=== PATIENT | male | born 1960 | race Caucasian/White ===

== ENCOUNTER 2017-06-18 06:15 | Day surgery (SDC) | payer OTHER ==
[~2017-06-18] VITALS: Wt 104.9 kg
[~2017-06-18 06:15] MED LIST: CHOLECALCIFEROL PO; Coq-10100 MG PO; DOCU100 PO; FISH1000 PO; IBUP600 PO; LORA1 PO; MULTIVITAMIN PO; NAPR500 PO; OXYACE5T PO; OXYC5 PO; PLEXUS BLOCK PO; PLEXUS SLIM PO; WARF4 PO; [UNRECOGNIZED DRUG - OTHER] PO; [UNRECOGNIZED DRUG - OTHER] PO; [UNRECOGNIZED DRUG - OTHER] PO; [UNRECOGNIZED DRUG - OTHER] PO
[2017-10-31] MEDS ORDERED: LORA.5 PO (10:49)
[2017-10-31] MEDS ORDERED: Multivitamin1 EAC1 (10:49)
[2017-10-31] MEDS ORDERED: IBUP600 PO (10:49)
[2017-10-31] MEDS ORDERED: FISH OIL 1,0001 EAC1 (10:49)
== END 2017-06-18 08:21 | disposition home or self-care (01) ==
LOC: ORSCSDS 06:15
PROVIDERS: Orthopaedic Surgery
PROC: 01N50ZZ Release Median Nerve, Open Approach (ICD-10-PCS; principal; 2017-06-18 07:30)
DX: G56.01 Carpal tunnel syndrome, right upper limb (principal)
CPT/HCPCS: J2250; J7120

== ENCOUNTER → 2017-08-21 | Outpatient (CLI) | payer OTHER | END | disposition home or self-care (01) | LOC: LAB SHORT 07:25 → PLD 07:25 | DX: D48.5 Neoplasm of uncertain behavior of skin (principal) | CPT/HCPCS: 88305 ==

== ENCOUNTER 2022-05-28 13:15 | Day surgery (SDC) | payer OTHER ==
[~2022-05-28] VITALS: Ht 175.3 cm; Wt 102.2 kg
[~2022-05-28 13:15] MED LIST changes: +FISH OIL 1,0001 EAC1; +LORA.5 PO; +Multivitamin1 EAC1
[2022-05-28] MEDS ORDERED: HYDCHL12.5 (13:39)
[2022-05-28] MEDS ORDERED: HYDHCL25 (13:40)
== END 2022-05-28 15:38 | disposition home or self-care (01) ==
LOC: ORSCSDS 13:15
PROVIDERS: Internal Medicine Gastroenterology
PROC: 0DBN8ZX Excision of Sigmoid Colon, Via Natural or Artificial Opening Endoscopic, Diagnostic (ICD-10-PCS; principal; 2022-05-28 14:30)
PROC: 0DBH8ZX Excision of Cecum, Via Natural or Artificial Opening Endoscopic, Diagnostic (ICD-10-PCS; principal; 2022-05-28 14:30)
DX: R19.5 Other fecal abnormalities (principal); D12.5 Benign neoplasm of sigmoid colon; D12.0 Benign neoplasm of cecum; K57.30 Diverticulosis of large intestine without perforation or abscess without bleeding; K64.8 Other hemorrhoids; Z87.891 Personal history of nicotine dependence; I10 Essential (primary) hypertension; E78.5 Hyperlipidemia, unspecified; E78.1 Pure hyperglyceridemia; Z79.899 Other long term (current) drug therapy
CPT/HCPCS: 88305; J2704

== ENCOUNTER 2022-10-24 06:04 | Day surgery (SDC) | payer OTHER ==
[~2022-10-24] VITALS: Ht 175.3 cm; Wt 99.2 kg
[2022-10-24] VITALS (14 sets, daily range): BP systolic 107–139; BP diastolic 59–81
[~2022-10-24 06:04] MED LIST changes: -FISH OIL 1,0001 EAC1; +FISH OIL PO; +HYDCHL12.5 PO; +HYDHCL25 PO; +MULVITA PO; -Multivitamin1 EAC1
--- NOTE | 2022-10-24 06:32 | NUR ---
Ambulatory in Day Surgery History, Chart, Medications and Allergies reviewed before start of procedure. Lungs clear T/O to Auscultation. Patient reports completing Chlorhexadine shower X2 prior to admission to hospital.Surgical site prepped with 2% Chlorhexidine cloth wipe. Patient confirms NPO status and agrees with scheduled surgery.[facility] PROTOCOL COMPLETED.
--- NOTE | 2022-10-24 11:05 | NUR ---
ARRIVAL TO UNIT ARRIVES IN HOSPITAL BED. ALERT, ORIENTED, & PLEASANT. ASSESSMENT CHARTED. SNACKS & WATER GIVEN. IGNITION RISK ASSESSED.
--- NOTE | 2022-10-24 18:29 | NUR ---
SHIFT SUMMARY PT HAS DONE VERY WELL POST OP. SPINAL WORE OFF & PT IS AMBULATING HALLWAYS, UP TO BATHROOM TO VOID, PAIN WELL CONTROLLED, WORKED w/ THERAPY, & EATING/DRINKING WELL.
[2022-10-25 00:03] VITALS: BP 122/73
[2022-10-25 04:09] VITALS: BP 112/65
[2022-10-25 04:29] LABS: BASOPHILS ABSOLUTE AUTO 0.02 K/mm3 (0.00-0.23); BASOPHILS PERCENT AUTO 0 % (0-2); EOSINOPHILS ABSOLUTE AUTO 0.05 K/mm3 (0.00-0.68); EOSINOPHILS PERCENT AUTO 1 % (0-6); Hematocrit 36.6 % (37.0-53.0); Hemoglobin 12.9 g/dL (13.5-17.5); IMMATURE GRAN ABSOLUTE AUTO 0.03 K/mm3 (0.00-0.10); IMMATURE GRAN PERCENT AUTO 0 % (0-1); LYMPHOCYTES ABSOLUTE AUTO 1.44 K/mm3 (0.84-5.20); LYMPHOCYTES PERCENT AUTO 16 % (21-46); MONOCYTES ABSOLUTE AUTO 0.82 K/mm3 (0.16-1.47); MONOCYTES PERCENT AUTO 9 % (4-13); Mean Corpuscular HGB 30.1 pg (26.0-34.0); Mean Corpuscular HGB Conc 35.2 g/dL (31.5-36.5); Mean Corpuscular Volume 86 fL (80-100); Mean Platelet Volume 9.7 fL (9.1-12.4); NEUTROPHILS ABSOLUTE AUTO 6.56 K/mm3 (1.96-9.15); NEUTROPHILS PERCENT AUTO 74 % (41-73); Platelet Count 178 K/mm3 (150-400); RDW Coefficient Variation 12.5 % (11.7-14.2); RDW Standard Deviation 38.5 fL (35.1-46.3); Red Blood Cell Count 4.28 M/mm3 (4.30-5.90); White Blood Cell Count 8.92 K/mm3 (4.00-11.30)
[2022-10-25 04:59] LABS: Bun/Creatinine Ratio 20.2 (12.0-20.0); Calcium, Blood 8.5 mg/dL (8.5-10.1); Creatinine, Blood 0.89 mg/dL (0.60-1.20); Magnesium, Blood 1.8 mg/dL (1.6-2.4); Potassium, Blood 3.8 mmol/L (3.5-5.5)
--- NOTE | 2022-10-25 06:02 | NUR ---
SHIFT SUMMARY NO ACUTE CHANGES TO REPORT OVERNIGHT, POD 0 RIGHT TOTAL KNEE. PT HAS DONE WELL OVERNIGHT, PAIN HAS BEEN MINIMAL AND WELL CONTROLLED PER EMAR. PT HAS BEEN UP AND AMBULATING, TOLERATING PO INTAKE AND VOIDING. DRESSING TO KNEE C/D/I. FIRE RISK ASSESSED THIS SHIFT, PT EDUCATED ON FIRE RISK AND IGNITION SOURCES. PT DENIES HAVING IGNITION SOURCES.
[2022-10-25 06:58] VITALS: BP 116/72
--- NOTE | 2022-10-25 11:30 | NUR ---
DISCHARGE SUMMARY PT A&OX4, VSS/RA, KARLA PO, VOIDING, AMB SBA/FWW/GB, PAIN MANAGED, IV DC'D, FIRE PREVENTION EDU PROVIDED/NO IGNITION DEVICES ID'D. DC INS PROVIDED. PT REP UNDERSTANDING THOSE INSTRUCTIONS INCLUDING FU WITH SURGEON, DRESSING CHANGES, BACTRIM X7DAYS BID, ASA BID AND TEDS [id number], PAIN MGMT, OUTPT PHYSICAL THERAPY, ICE/ELEVATE AT REST WITH SHORT FREQU AMB W/FWW. LEFT FLOOR VIA WC WITH CUE SELECTOR TO GO HOME WITH ALL PERSONAL POSSESSIONS INCLUDING AQUACEL DRESSINGS AND DC PACKET; PT REP HAVING SCRIPTS FILLED AT HOME.
== END 2022-10-25 11:30 | disposition home or self-care (01) ==
LOC: ORSCMMR 06:04 → ORD 07:30 → ORSCMMR 07:30 → SURS 10:54 → ORSCMMR 10-25 11:30
PROVIDERS: Orthopaedic Surgery
PROC: 0SRC0J9 Replacement of Right Knee Joint with Synthetic Substitute, Cemented, Open Approach (ICD-10-PCS; principal; 2022-10-24 07:30)
DX: M17.11 Unilateral primary osteoarthritis, right knee (principal); Z96.651 Presence of right artificial knee joint; I10 Essential (primary) hypertension; F41.9 Anxiety disorder, unspecified; Z79.899 Other long term (current) drug therapy; Z87.891 Personal history of nicotine dependence
CPT/HCPCS: 36415; 73560-RT; 80048; 83735; 85025; 97110; 97116; 97161; A9270; C1713; C1776; J0171; J0690; J0735; J1100; J1885; J2250; J2371; J2405; J2704; J2795; J3010; J3370; J7120

== ENCOUNTER 2022-12-26 08:58 | Emergency (ER) | payer OTHER ==
[~2022-12-26] VITALS: Ht 175.3 cm; Wt 97.1 kg
[2022-12-26 10:30] VITALS: BP 134/84
[2022-12-26] MEDS ORDERED: IBUP800 PO (11:36)
== END 2022-12-26 11:57 | disposition home or self-care (01) ==
LOC: ER 08:58
DX: I80.02 Phlebitis and thrombophlebitis of superficial vessels of left lower extremity (principal); I10 Essential (primary) hypertension; Z79.899 Other long term (current) drug therapy; Z87.891 Personal history of nicotine dependence
CPT/HCPCS: 93971; 99283-25; A9270

== ENCOUNTER 2023-07-25 02:09 | Day surgery (SDC) | payer OTHER ==
[~2023-07-25 02:09] MED LIST changes: +ASPI81CH PO; +CEFTRIAXONE2 G1 IV; +CefTRIAXone Sodium 2,000 MG in NS 100 ML IV SCH; +IBUP800 PO; +Percocet 5-3251 EACH PO; +SULTRIDS PO
[2023-07-25 14:35] LABS: BASOPHILS ABSOLUTE AUTO 0.01 K/mm3 (0.00-0.23); BASOPHILS PERCENT AUTO 0 % (0-2); EOSINOPHILS ABSOLUTE AUTO 0.08 K/mm3 (0.00-0.68); EOSINOPHILS PERCENT AUTO 1 % (0-6); Hematocrit 41.6 % (37.0-53.0); Hemoglobin 14.4 g/dL (13.5-17.5); IMMATURE GRAN ABSOLUTE AUTO 0.02 K/mm3 (0.00-0.10); IMMATURE GRAN PERCENT AUTO 0 % (0-1); LYMPHOCYTES ABSOLUTE AUTO 1.43 K/mm3 (0.84-5.20); LYMPHOCYTES PERCENT AUTO 21 % (21-46); MONOCYTES ABSOLUTE AUTO 0.56 K/mm3 (0.16-1.47); MONOCYTES PERCENT AUTO 8 % (4-13); Mean Corpuscular HGB 29.8 pg (26.0-34.0); Mean Corpuscular HGB Conc 34.6 g/dL (31.5-36.5); Mean Corpuscular Volume 86 fL (80-100); Mean Platelet Volume 9.4 fL (9.1-12.4); NEUTROPHILS ABSOLUTE AUTO 4.63 K/mm3 (1.96-9.15); NEUTROPHILS PERCENT AUTO 69 % (41-73); Platelet Count 233 K/mm3 (150-400); RDW Coefficient Variation 12.5 % (11.7-14.2); Red Blood Cell Count 4.84 M/mm3 (4.30-5.90); White Blood Cell Count 6.73 K/mm3 (4.00-11.30)
[2023-07-25 16:05] LABS: C-REACTIVE PROTEIN, EXT RANGE 0.569 mg/dL (0.000-0.300)
[2023-07-25 16:06] LABS: Albumin, Blood 3.3 g/dL (3.4-5.0); Albumin/Globulin Ratio 0.8 (0.8-1.8); Bilirubin, Total 0.3 mg/dL (0.1-1.0); Bun/Creatinine Ratio 24.4 (12.0-20.0); Calcium, Blood 9.2 mg/dL (8.5-10.1); Creatinine, Blood 0.86 mg/dL (0.60-1.20); Globulin, Blood 3.9 g/dL (2.2-4.0); Potassium, Blood 3.7 mmol/L (3.5-5.5); Total Protein, Blood 7.2 g/dL (6.4-8.2)
== END 2023-07-25 14:56 | disposition home or self-care (01) ==
LOC: ATC 02:09
PROVIDERS: Internal Medicine Infectious Disease
DX: T87.43 Infection of amputation stump, right lower extremity (principal); Z88.5 Allergy status to narcotic agent
CPT/HCPCS: 80053; 85025; 86140; 96365; J0696

== ENCOUNTER 2023-08-02 04:21 | Day surgery (SDC) | payer OTHER ==
[2023-08-02 14:17] VITALS: BP 154/88
== END 2023-08-02 14:46 | disposition home or self-care (01) ==
LOC: ATC 04:21
DX: T84.53XA Infection and inflammatory reaction due to internal right knee prosthesis, initial encounter (principal); Y79.2 Prosthetic and other implants, materials and accessory orthopedic devices associated with adverse incidents; A48.8 Other specified bacterial diseases; Z88.5 Allergy status to narcotic agent; Z79.82 Long term (current) use of aspirin; Z79.899 Other long term (current) drug therapy
CPT/HCPCS: 96365; J0696

== ENCOUNTER 2023-08-03 02:04 | Day surgery (SDC) | payer OTHER ==
[2023-08-03 13:55] VITALS: BP 148/86
== END 2023-08-03 14:15 | disposition home or self-care (01) ==
LOC: ATC 02:04
DX: T84.53XA Infection and inflammatory reaction due to internal right knee prosthesis, initial encounter (principal); Y79.2 Prosthetic and other implants, materials and accessory orthopedic devices associated with adverse incidents; A48.8 Other specified bacterial diseases; Z88.5 Allergy status to narcotic agent; Z79.82 Long term (current) use of aspirin; Z79.899 Other long term (current) drug therapy
CPT/HCPCS: 96365; J0696

== ENCOUNTER 2023-08-04 02:09 | Day surgery (SDC) | payer OTHER ==
[2023-08-04 11:22] VITALS: BP 140/88
== END 2023-08-04 11:45 | disposition home or self-care (01) ==
LOC: ATC 02:09
DX: T84.53XA Infection and inflammatory reaction due to internal right knee prosthesis, initial encounter (principal); Y79.2 Prosthetic and other implants, materials and accessory orthopedic devices associated with adverse incidents; A48.8 Other specified bacterial diseases; Z88.5 Allergy status to narcotic agent; Z79.82 Long term (current) use of aspirin; Z79.899 Other long term (current) drug therapy
CPT/HCPCS: 96365; J0696

== ENCOUNTER 2023-08-05 04:40 | Day surgery (SDC) | payer OTHER ==
[2023-08-05 14:20] VITALS: BP 152/87
== END 2023-08-05 14:48 | disposition home or self-care (01) ==
LOC: ATC 04:40
DX: T84.53XA Infection and inflammatory reaction due to internal right knee prosthesis, initial encounter (principal); A48.8 Other specified bacterial diseases
CPT/HCPCS: 96365; J0696

== ENCOUNTER 2023-08-06 01:22 | Day surgery (SDC) | payer OTHER ==
[2023-08-06 14:20] VITALS: BP 135/82
== END 2023-08-06 14:38 | disposition home or self-care (01) ==
LOC: ATC 01:22
DX: T84.53XA Infection and inflammatory reaction due to internal right knee prosthesis, initial encounter (principal); Y79.2 Prosthetic and other implants, materials and accessory orthopedic devices associated with adverse incidents; A48.8 Other specified bacterial diseases; Z88.5 Allergy status to narcotic agent; Z79.899 Other long term (current) drug therapy; Z79.82 Long term (current) use of aspirin
CPT/HCPCS: 96365; J0696

== ENCOUNTER 2023-08-07 03:26 | Day surgery (SDC) | payer OTHER ==
[2023-08-07 14:09] VITALS: BP 143/83
== END 2023-08-07 14:33 | disposition home or self-care (01) ==
LOC: ATC 03:26
DX: T84.53XA Infection and inflammatory reaction due to internal right knee prosthesis, initial encounter (principal); Y79.2 Prosthetic and other implants, materials and accessory orthopedic devices associated with adverse incidents; A48.8 Other specified bacterial diseases; Z88.5 Allergy status to narcotic agent; Z79.82 Long term (current) use of aspirin; Z79.899 Other long term (current) drug therapy
CPT/HCPCS: 96365; J0696

== ENCOUNTER 2023-08-08 04:27 | Day surgery (SDC) | payer OTHER ==
[~2023-08-08 04:27] MED LIST changes: -CefTRIAXone Sodium 2,000 MG in NS 100 ML IV SCH
[2023-08-08] MEDS ORDERED: CefTRIAXone Sodium 2,000 MG in NS 100 ML IV SCH (07:00)
[2023-08-08 14:39] VITALS: BP 134/76
[2023-08-08 15:22] LABS: BASOPHILS ABSOLUTE AUTO 0.01 K/mm3 (0.00-0.23); BASOPHILS PERCENT AUTO 0 % (0-2); EOSINOPHILS ABSOLUTE AUTO 0.08 K/mm3 (0.00-0.68); EOSINOPHILS PERCENT AUTO 2 % (0-6); Hemoglobin 14.7 g/dL (13.5-17.5); IMMATURE GRAN ABSOLUTE AUTO 0.01 K/mm3 (0.00-0.10); IMMATURE GRAN PERCENT AUTO 0 % (0-1); LYMPHOCYTES ABSOLUTE AUTO 1.22 K/mm3 (0.84-5.20); LYMPHOCYTES PERCENT AUTO 28 % (21-46); MONOCYTES ABSOLUTE AUTO 0.35 K/mm3 (0.16-1.47); MONOCYTES PERCENT AUTO 8 % (4-13); Mean Corpuscular HGB 29.8 pg (26.0-34.0); Mean Corpuscular HGB Conc 34.2 g/dL (31.5-36.5); Mean Corpuscular Volume 87 fL (80-100); Mean Platelet Volume 10.2 fL (9.1-12.4); NEUTROPHILS ABSOLUTE AUTO 2.64 K/mm3 (1.96-9.15); NEUTROPHILS PERCENT AUTO 61 % (41-73); Platelet Count 168 K/mm3 (150-400); RDW Coefficient Variation 13.4 % (11.7-14.2); RDW Standard Deviation 42.4 fL (35.1-46.3); Red Blood Cell Count 4.94 M/mm3 (4.30-5.90); White Blood Cell Count 4.31 K/mm3 (4.00-11.30)
[2023-08-08 15:43] LABS: Albumin, Blood 3.5 g/dL (3.4-5.0); Albumin/Globulin Ratio 0.9 (0.8-1.8); Bilirubin, Total 0.5 mg/dL (0.1-1.0); Bun/Creatinine Ratio 17.6 (12.0-20.0); C-REACTIVE PROTEIN, EXT RANGE 0.38 mg/dL (0.000-0.300); Calcium, Blood 9.1 mg/dL (8.5-10.1); Creatinine, Blood 0.8 mg/dL (0.60-1.20); Globulin, Blood 3.8 g/dL (2.2-4.0); Potassium, Blood 3.9 mmol/L (3.5-5.5); Total Protein, Blood 7.3 g/dL (6.4-8.2)
== END 2023-08-08 15:40 | disposition home or self-care (01) ==
LOC: ATC 04:27
PROVIDERS: Orthopaedic Surgery
DX: T84.53XA Infection and inflammatory reaction due to internal right knee prosthesis, initial encounter (principal); Y79.2 Prosthetic and other implants, materials and accessory orthopedic devices associated with adverse incidents
CPT/HCPCS: 80053; 85025; 86140; 96365; J0696

== ENCOUNTER 2023-08-09 01:37 | Day surgery (SDC) | payer OTHER ==
[2023-08-09] MEDS ORDERED: CefTRIAXone Sodium 2,000 MG in NS 100 ML IV SCH (07:00)
[2023-08-09 14:20] VITALS: BP 150/88
== END 2023-08-09 14:45 | disposition home or self-care (01) ==
LOC: ATC 01:37
DX: T84.53XA Infection and inflammatory reaction due to internal right knee prosthesis, initial encounter (principal); Y79.2 Prosthetic and other implants, materials and accessory orthopedic devices associated with adverse incidents; A48.8 Other specified bacterial diseases; Z88.5 Allergy status to narcotic agent; Z79.899 Other long term (current) drug therapy; Z79.82 Long term (current) use of aspirin
CPT/HCPCS: 96365; J0696

== ENCOUNTER 2023-08-10 04:14 | Day surgery (SDC) | payer OTHER ==
[~2023-08-10 04:14] MED LIST changes: +CefTRIAXone Sodium 2,000 MG in NS 100 ML IV SCH
[2023-08-10 14:06] VITALS: BP 142/76
== END 2023-08-10 14:27 | disposition home or self-care (01) ==
LOC: ATC 04:14
DX: T84.53XA Infection and inflammatory reaction due to internal right knee prosthesis, initial encounter (principal); A48.8 Other specified bacterial diseases
CPT/HCPCS: 96365; J0696

== ENCOUNTER 2023-08-11 00:18 | Day surgery (SDC) | payer OTHER ==
[~2023-08-11 00:18] MED LIST changes: -CefTRIAXone Sodium 2,000 MG in NS 100 ML IV SCH
[2023-08-11] MEDS ORDERED: CefTRIAXone Sodium 2,000 MG in NS 100 ML IV SCH (01:00)
[2023-08-11 14:00] VITALS: BP 136/85
== END 2023-08-11 14:23 | disposition home or self-care (01) ==
LOC: ATC 00:18
DX: T84.53XA Infection and inflammatory reaction due to internal right knee prosthesis, initial encounter (principal); Y79.2 Prosthetic and other implants, materials and accessory orthopedic devices associated with adverse incidents; A48.8 Other specified bacterial diseases; Z88.5 Allergy status to narcotic agent; Z79.82 Long term (current) use of aspirin; Z79.899 Other long term (current) drug therapy; Z79.891 Long term (current) use of opiate analgesic
CPT/HCPCS: 96365; J0696

== ENCOUNTER 2023-08-12 04:42 | Day surgery (SDC) | payer OTHER ==
[~2023-08-12 04:42] MED LIST changes: +CefTRIAXone Sodium 2,000 MG in NS 100 ML IV SCH
[2023-08-12 14:31] VITALS: BP 139/93
[2023-08-12 14:34] VITALS: BP 135/89
== END 2023-08-12 14:52 | disposition home or self-care (01) ==
LOC: ATC 04:42
DX: T84.53XA Infection and inflammatory reaction due to internal right knee prosthesis, initial encounter (principal); A48.8 Other specified bacterial diseases
CPT/HCPCS: 96365; J0696

== ENCOUNTER 2023-08-13 02:34 | Day surgery (SDC) | payer OTHER ==
[2023-08-13 14:26] VITALS: BP 160/84
== END 2023-08-13 14:49 | disposition home or self-care (01) ==
LOC: ATC 02:34
DX: T84.53XA Infection and inflammatory reaction due to internal right knee prosthesis, initial encounter (principal); Y79.2 Prosthetic and other implants, materials and accessory orthopedic devices associated with adverse incidents; A48.8 Other specified bacterial diseases; Z88.5 Allergy status to narcotic agent; Z79.82 Long term (current) use of aspirin; Z79.899 Other long term (current) drug therapy
CPT/HCPCS: 96365; J0696

== ENCOUNTER 2023-08-14 03:18 | Day surgery (SDC) | payer OTHER ==
[2023-08-14 14:13] VITALS: BP 137/84
== END 2023-08-14 14:29 | disposition home or self-care (01) ==
LOC: ATC 03:18
DX: T84.53XA Infection and inflammatory reaction due to internal right knee prosthesis, initial encounter (principal); Y79.3 Surgical instruments, materials and orthopedic devices (including sutures) associated with adverse incidents; B95.4 Other streptococcus as the cause of diseases classified elsewhere
CPT/HCPCS: 96365; J0696

== ENCOUNTER 2023-08-15 02:46 | Day surgery (SDC) | payer OTHER ==
[2023-08-15 14:54] VITALS: BP 140/92
[2023-08-15 15:59] LABS: BASOPHILS ABSOLUTE AUTO 0.02 K/mm3 (0.00-0.23); BASOPHILS PERCENT AUTO 0 % (0-2); EOSINOPHILS ABSOLUTE AUTO 0.08 K/mm3 (0.00-0.68); EOSINOPHILS PERCENT AUTO 2 % (0-6); Hematocrit 43.1 % (37.0-53.0); Hemoglobin 14.8 g/dL (13.5-17.5); IMMATURE GRAN ABSOLUTE AUTO 0.03 K/mm3 (0.00-0.10); IMMATURE GRAN PERCENT AUTO 1 % (0-1); LYMPHOCYTES ABSOLUTE AUTO 1.47 K/mm3 (0.84-5.20); LYMPHOCYTES PERCENT AUTO 28 % (21-46); MONOCYTES ABSOLUTE AUTO 0.38 K/mm3 (0.16-1.47); MONOCYTES PERCENT AUTO 7 % (4-13); Mean Corpuscular HGB Conc 34.3 g/dL (31.5-36.5); Mean Corpuscular Volume 87 fL (80-100); NEUTROPHILS ABSOLUTE AUTO 3.32 K/mm3 (1.96-9.15); NEUTROPHILS PERCENT AUTO 63 % (41-73); Platelet Count 215 K/mm3 (150-400); RDW Coefficient Variation 13.3 % (11.7-14.2); Red Blood Cell Count 4.93 M/mm3 (4.30-5.90)
[2023-08-15 16:13] LABS: C-REACTIVE PROTEIN, EXT RANGE <0.290 mg/dL (0.000-0.300)
[2023-08-15 16:15] LABS: Alanine Aminotransfer (ALT/SGP 36 U/L (12-78); Albumin, Blood 3.6 g/dL (3.4-5.0); Alk Phos 78 U/L (50-136); Anion Gap 9 mmol/L (3-11); Aspartate Aminotrans (AST/SGOT 27 U/L (12-37); Bilirubin, Total 0.5 mg/dL (0.1-1.0); Blood Urea Nitrogen 15 mg/dL (8-24); Bun/Creatinine Ratio 19.8 (12.0-20.0); CO2, Blood 27 mmol/L (21-32); Calcium, Blood 9.3 mg/dL (8.5-10.1); Chloride, Blood 105 mmol/L (98-108); Creatinine, Blood 0.76 mg/dL (0.60-1.20); Globulin, Blood 3.6 g/dL (2.2-4.0); Glomerular Filtration Rate 100 (60-); Glucose, Blood 225 mg/dL (70-99); Potassium, Blood 3.3 mmol/L (3.5-5.5); Sodium, Blood 138 mmol/L (136-145); Total Protein, Blood 7.2 g/dL (6.4-8.2)
== END 2023-08-15 15:57 | disposition home or self-care (01) ==
LOC: ATC 02:46
PROVIDERS: Internal Medicine Infectious Disease
DX: T84.53XA Infection and inflammatory reaction due to internal right knee prosthesis, initial encounter (principal); B96.89 Other specified bacterial agents as the cause of diseases classified elsewhere
CPT/HCPCS: 80053; 85025; 86140; 96365; J0696

== ENCOUNTER 2023-08-17 02:29 | Day surgery (SDC) | payer OTHER ==
[2023-08-17 08:24] VITALS: BP 132/87
== END 2023-08-17 08:45 | disposition home or self-care (01) ==
LOC: ATC 02:29
DX: T84.53XA Infection and inflammatory reaction due to internal right knee prosthesis, initial encounter (principal); Y79.2 Prosthetic and other implants, materials and accessory orthopedic devices associated with adverse incidents; A48.8 Other specified bacterial diseases; Z88.5 Allergy status to narcotic agent; Z79.82 Long term (current) use of aspirin; Z79.899 Other long term (current) drug therapy
CPT/HCPCS: 96365; J0696

== ENCOUNTER 2023-08-18 02:56 | Day surgery (SDC) | payer OTHER ==
[2023-08-18 09:08] VITALS: BP 137/78
== END 2023-08-18 09:37 | disposition home or self-care (01) ==
LOC: ATC 02:56
DX: T84.53XA Infection and inflammatory reaction due to internal right knee prosthesis, initial encounter (principal); A48.8 Other specified bacterial diseases
CPT/HCPCS: 96365; J0696

== ENCOUNTER 2023-08-19 00:19 | Day surgery (SDC) | payer OTHER ==
[2023-08-19 14:10] VITALS: BP 158/88
== END 2023-08-19 14:34 | disposition home or self-care (01) ==
LOC: ATC 00:19
DX: T84.53XA Infection and inflammatory reaction due to internal right knee prosthesis, initial encounter (principal); B96.89 Other specified bacterial agents as the cause of diseases classified elsewhere

== ENCOUNTER 2023-08-20 00:50 | Day surgery (SDC) | payer OTHER ==
[2023-08-20 10:48] VITALS: BP 120/80
== END 2023-08-20 11:13 | disposition home or self-care (01) ==
LOC: ATC 00:50
DX: T84.53XA Infection and inflammatory reaction due to internal right knee prosthesis, initial encounter (principal); A48.8 Other specified bacterial diseases

== ENCOUNTER 2023-08-20 08:04 | Day surgery (SDC) | payer OTHER ==
[~2023-08-20] VITALS: Ht 175.3 cm; Wt 99.7 kg
[~2023-08-20 08:04] MED LIST changes: -CefTRIAXone Sodium 2,000 MG in NS 100 ML IV SCH; +Lactated Ringer's 1,000 ML IV SCH
[2023-08-20 08:47] VITALS: BP 121/76
[2023-08-20] MEDS ORDERED: propofoL 20 ML IV ONE (09:12)
[2023-08-20] MEDS ORDERED: Midazolam HCl 1MG / ML 2ML Vial ONE (09:34)
--- NOTE | 2023-08-20 09:36 | NUR ---
08/20/23 0936 [place] HISTORY, CHART, MEDICATIONS AND ALLERGIES REVIEWED BEFORE START OF PROCEDURE. PATIENT CONFIRMS NPO STATUS AND AGREES WITH SCHEDULED PROCEDURE. 3-LEAD EKG REVIEWED WITH PHYSICIAN PRIOR TO START OF PROCEDURE. MONITOR INTACT WITH CONTINUOUS PULSE OXIMETRY,CAPNOGRAPHY, 3-LEAD EKG, INTERMITTENT BP. SUPPLEMENTAL O2 TO BE TITRATED THROUGHOUT PROCEDURE TO MAINTAIN O2 SATURATION ABOVE 90%. PATIENT DETERMINED TO BE ASA APPROPRIATE FOR PROPOFOL SEDATION PRIOR TO START OF PROCEDURE BY
[2023-08-20 09:51] VITALS: BP 119/74
[2023-08-20 10:08] VITALS: BP 152/90
--- NOTE | 2023-08-20 10:20 | NUR ---
DISCHARGE NOTE Patient up to Ambulate independently. Gait steady. Discharge instructions reviewed with patient. Patient verbalizes understanding. Copy given to patient to take home. Lungs clear T/O to Auscultation. Discharged via wheelchair to private car for ride home. VSS. Pt states he is hypertensive at baseline, asymptomatic. Pt states PICC placed prior to this visit, remains in R upper arm.
== END 2023-08-20 10:21 | disposition home or self-care (01) ==
LOC: ORSCMMR 08:04 → ORD 09:00 → ORSCMMR 09:00
PROVIDERS: Internal Medicine Gastroenterology
PROC: 0DJD8ZZ Inspection of Lower Intestinal Tract, Via Natural or Artificial Opening Endoscopic (ICD-10-PCS; principal; 2023-08-20 09:00)
DX: K63.5 Polyp of colon (principal); I10 Essential (primary) hypertension; K57.30 Diverticulosis of large intestine without perforation or abscess without bleeding; Z79.82 Long term (current) use of aspirin; Z79.899 Other long term (current) drug therapy
CPT/HCPCS: J2250; J2704; J7120

== ENCOUNTER 2023-08-21 04:27 | Day surgery (SDC) | payer OTHER ==
[~2023-08-21 04:27] MED LIST changes: +CefTRIAXone Sodium 2,000 MG in NS 100 ML IV SCH; -Lactated Ringer's 1,000 ML IV SCH
[2023-08-21 14:32] VITALS: BP 148/86
== END 2023-08-21 14:55 | disposition home or self-care (01) ==
LOC: ATC 04:27
DX: T84.53XA Infection and inflammatory reaction due to internal right knee prosthesis, initial encounter (principal); A48.8 Other specified bacterial diseases
CPT/HCPCS: 96365; J0696

== ENCOUNTER 2023-08-22 03:24 | Day surgery (SDC) | payer OTHER ==
[2023-08-22 14:18] VITALS: BP 130/88
== END 2023-08-22 14:52 | disposition home or self-care (01) ==
LOC: ATC 03:24
DX: T84.53XD Infection and inflammatory reaction due to internal right knee prosthesis, subsequent encounter (principal); Z79.82 Long term (current) use of aspirin; Z79.899 Other long term (current) drug therapy; Y79.2 Prosthetic and other implants, materials and accessory orthopedic devices associated with adverse incidents
CPT/HCPCS: 96365; J0696